=== PATIENT | female | born 1950 | race Hispanic/Latino ===

== ENCOUNTER 2017-05-21 11:40 | Emergency (ER) | payer OTHER ==
[2017-05-21 11:50] VITALS: TEMP 98.1
[2017-05-21] MEDS ORDERED: Tetanus/Diphtheria Toxoids 0.5 ml Syringe IM ONE (12:18)
--- NOTE | 2017-05-21 12:19 | C.PDOC ---
History Of Present Illness 67 year old female presents to the ED for evaluation of pain, swelling and lacerations to her right 3rd and 4th fingers. Patient reports she accidentally slammed her right 3rd and 4th fingers with the garage door at approximately 09: 00 am. She states her tetanus is not up to date otherwise denies any weakness, numbness, decreased sensation, fever, chills. Time Seen by Provider: 05/21/17 11:55 Chief Complaint (Nursing): Upper Extremity Problem/Injury History Per: Patient History/Exam Limitations: no limitations Onset/Duration Of Symptoms: Hrs Current Symptoms Are (Timing): Still Present Quality: "Pain" Recent travel outside of the [place]: No Additional History Per: Patient Past Medical History Reviewed: Historical Data, Nursing Documentation, Vital Signs Vital Signs: Last Vital Signs Temp 98.1 F 05/21/17 11:49 Pulse 82 05/21/17 12:52 Resp 16 05/21/17 12:52 BP 172/100 H 05/21/17 12:52 Pulse Ox 98 05/24/17 11:27 - Medical History PMH: No Chronic Diseases Surgical History: No Surg Hx Family History: States: Unknown Family Hx - Social History Hx Alcohol Use: No Hx Substance Use: No Review Of Systems Constitutional: Negative for: Fever, Chills Musculoskeletal: Positive for: Hand Pain (Right 3rd and 4th fingers) Skin: Positive for: Other (Lacerations, swelling to distal phalanges on right 3rd and 4th fingers, palmar surface) Neurological: Negative for: Weakness, Numbness Physical Exam - Physical Exam Appears: Non-toxic, No Acute Distress Skin: Ecchymosis (right 3rd and 4th finger distal phalanx), Other (1.2 cm laceration across distal phalanges palmar surface of 3rd and 4th right fingers) Head: Atraumatic, Normacephalic Eye(s): bilateral: Normal Inspection, PERRL Nose: No Discharge, No Deformity Neck: Supple Extremity: Capillary Refill (less than 2 seconds), No Deformity, Swelling ( right 3rd and 4th finger distal phalanx), Other (right 3rd finger small subungual hematoma 10% nailbed ) Pulses: Left Radial: Normal, Right Radial: Normal Neurological/Psych: Oriented x3, Normal Speech, Normal Cognition, Normal Motor, Normal Sensation ED Course And Treatment O2 Sat by Pulse Oximetry: 98 (On RA) Pulse Ox Interpretation: Normal - Other Rad hand X-Ray: Viewed By Me, Read By Radiologist Interpretation: Acute transverse nondisplaced fractures in the kimmie of the distal phalanx is of the 3rd and 4th digits with overlying soft tissue swelling. Medical Decision Making Medical Decision Making: Plan: * Toradol 30 mg IM given * adacel 0.5 ML IM given * Right hand X-ray ordere 142 pm pt with tuft fractures of both 3rd and 4th fingers right hand. both fingertips ecchymotic and swollen , each with approx 1-1.3 cm irregular lacerations horizontally; unable to approximate skin on either finger due to swelling. Bacitracin applied, non stiick dressing applied, cold compress applied. after cold compress, splints placed on each finger. pt has no hx of htn, has no cp, sob, dizziness at this time. pt advised to f/u med clinic in 1 day for bp check and also for wound check of fingers. Disposition Counseled Patient/Family Regarding: Diagnosis, Need For Followup, Rx Given - Disposition Referrals: [facility] [Outside] [facility] [Outside] [facility] [Outside] Linda Johansen MD [Staff Provider] - Disposition: HOME/ ROUTINE Disposition Time: 13:49 Condition: STABLE Additional Instructions: Please keep dressing on fingers clean and dry until wound check in 1-2 days. Take antibiotics and ibuprofen as prescribed. Follow up in medical clinic in 1- 2 days for blood pressure check and for wound check of fingers, or with Hand surgeon. . Return to ER for any worsening symptoms, fever, or any other concerning symptoms. Prescriptions: Cephalexin [cephalexin] 500 mg PO QID #28 cap Instructions: Finger Fracture (ED), Laceration Without Closure (ED), Crush Injury (ED) Forms: [facility] (Ukrainian), General Discharge Instructions - Clinical Impression Clinical Impression: Crushing injury of right middle finger, Crushing injury of right ring finger, initial encounter, Open fracture of tuft of distal phalanx of finger with delayed healing, Elevated blood pressure reading without diagnosis of hypertension - PA / CHRONIC DISEASE MANAGER / Resident Statement MD/DO has reviewed & agrees with the documentation as recorded. - Scribe Statement The provider has reviewed the documentation as recorded by the Scribe Marquise Mcgarry All medical record entries made by the Scribe were at my direction and personally dictated by me. I have reviewed the chart and agree that the record accurately reflects my personal performance of the history, physical exam, medical decision making, and the department course for this patient. I have also personally directed, reviewed, and agree with the discharge instructions and disposition.
[2017-05-21] MEDS ORDERED: Bacitracin 500 Units/gm Oint Foilpak UD TOP ONE (12:44)
[2017-05-21 12:52] VITALS: BP 172/100; PULSE 82; RESP 16
--- NOTE | 2017-05-21 13:40 | RAD ---
PROCEDURE: Right Hand Radiographs. HISTORY: crush injury 3rd and 4th fingers distal tip COMPARISON: None. FINDINGS: BONES: There are acute transverse nondisplaced fractures in the tuft of the distal phalanges of the 3rd and 4th digits with overlying soft tissue swelling. Bone alignment and mineralization are normal. JOINTS: Normal. No osteoarthritic changes. SOFT TISSUES: No radiopaque foreign body. OTHER FINDINGS: None. IMPRESSION: Acute transverse nondisplaced fractures in the kimmie of the distal phalanx is of the 3rd and 4th digits with overlying soft tissue swelling.
[2017-05-21 13:47] VITALS: O2SAT 98
== END 2017-05-21 14:04 | disposition home or self-care (01) ==
LOC: C.ER 11:40
DX: S67.192A Crushing injury of right middle finger, initial encounter (principal); S67.194A Crushing injury of right ring finger, initial encounter; S62.632G Displaced fracture of distal phalanx of right middle finger, subsequent encounter for fracture with delayed healing; S62.634G Displaced fracture of distal phalanx of right ring finger, subsequent encounter for fracture with delayed healing; W22.8XXA Striking against or struck by other objects, initial encounter; R03.0 Elevated blood-pressure reading, without diagnosis of hypertension
CPT/HCPCS: 29130; 73130; 90471; 90715; 96372; 99285; J1885

== ENCOUNTER 2017-05-23 09:53 | Emergency (ER) | payer MEDICARE, OTHER ==
[2017-05-23 09:59] VITALS: RESP 18; O2SAT 100
--- NOTE | 2017-05-23 10:29 | C.PDOC ---
History Of Present Illness <Selma Pop - Last Filed: 05/23/17 10:39> <Pritesh Peoples - Last Filed: 05/23/17 11:39> 67 year old female who came to the ED 2 days ago for pain and swelling of her right 3rd and 4th fingers. Patient reported she had accidentally slammed her right 3rd and 4th fingers with the garage door that morning. She was evaluated by ER physician and the would was examined with radiographs which indicated acute transverse non-displaced fractures in the kimmie of the distal phalanx of the 3rd and 4th digits with overlying soft tissue swelling. The wound was dressed with splints, she was given scripts for keflex and ibuprofen and she was asked to follow up with a hand surgeon or the [facility]. She was also given a tetanus vaccine during her initial encounter. She has been compliant with meds. He not seen physician due to no insurance coverage currently. Denies any weakness, numbness, decreased sensation, fever, chills. She is coming in today for evaluation of the wound and dressing change. (Pritesh Peoples) <Selma Pop - Last Filed: 05/23/17 10:39> History Per: Patient Onset/Duration Of Symptoms: Days Ago Current Symptoms Are (Timing): Still Present Location Of Injury: Right: Hand Quality Of Symptoms: Painful, Swollen Severity: Moderate Pain Scale Rating Of: 5 <Pritesh Peoples - Last Filed: 05/23/17 11:39> Time Seen by Provider: 05/23/17 10:04 Chief Complaint (Nursing): Wound Check Past Medical History - Medical History PMH: No Chronic Diseases Surgical History: No Surg Hx Family History: States: Unknown Family Hx - Social History Hx Alcohol Use: No Hx Substance Use: No <Pritesh Peoples - Last Filed: 05/23/17 11:39> Vital Signs: Last Vital Signs Temp 98.0 F 05/23/17 11:20 Pulse 70 05/23/17 11:20 Resp 18 05/23/17 11:20 BP 160/92 H 05/23/17 11:20 Pulse Ox 100 05/23/17 11:32 Review Of Systems Constitutional: Negative for: Fever, Chills Eyes: Negative for: Vision Change Cardiovascular: Negative for: Chest Pain, Palpitations Respiratory: Negative for: Cough, Shortness of Breath Gastrointestinal: Negative for: Nausea, Vomiting, Abdominal Pain Musculoskeletal: Positive for: Hand Pain (right hand pain) Neurological: Negative for: Weakness, Numbness <Pritesh Peoples - Last Filed: 05/23/17 11:39> Physical Exam - Physical Exam Appears: No Acute Distress Head: Atraumatic, Normacephalic Cardiovascular: Rhythm Regular Respiratory: Normal Breath Sounds, No Rales, No Rhonchi Gastrointestinal/Abdominal: Soft, No Tenderness Neurological/Psych: Oriented x3, Normal Speech, Normal Cognition, Normal Sensation 1 - right hand 3rd and 4th digit- lacerations on the ventral aspect of both digits with serosanguinous discharge, no purulence, appropriately swollen given context of injury, wound exhibits appropriate healing <Pritesh Peoples - Last Filed: 05/23/17 11:39> ED Course And Treatment O2 Sat by Pulse Oximetry: 100 <Pritesh Peoples - Last Filed: 05/23/17 11:39> Supervising Attending Note - Attestation: I have personally seen and examined this patient.: Yes I have fully participated in the care of the patient.: Yes I have reviewed all pertinent clinical information, including history, physical exam and plan: Yes <Selma Pop - Last Filed: 05/23/17 10:39> <Pritesh Peoples - Last Filed: 05/23/17 11:39> - Notes: Notes:: REQUESTING DRESSING CHANGE. SEEN 05/21 SP 3,4 CRUSH INJURY CURRENTLY ON ABX. COMPLAINT W MEDS. PS HAS NO INSURANCE. EXAM ABOVE. WOUND CLEANED, REDRESSED, RESPLINTED. HAND SURG REFERRAL GIVEN (Selma Pop) Medical Decision Making <Selma Pop - Last Filed: 05/23/17 10:39> <Pritesh Peoples - Last Filed: 05/23/17 11:39> Medical Decision Making: Wound was evaluated and healing appropriately. No signs of infection- no purulence. The wound was rinsed with saline and redressed with bacitracin topical ointment applied. Metal finger splints were use to stabilize the 3rd and 4th digits. She has already been given Keflex and is to continue taking this. Ibuprofen prn pain. She will need to follow up with hand surgeon and PCP. She will need BID dressing changes at home. The steps for dressing changes and cleaning the wound were discussed with the patient. (Pritesh Peoples) Disposition Counseled Patient/Family Regarding: Diagnosis, Need For Followup - Disposition Disposition Time: 10:51 <Selma Pop - Last Filed: 05/23/17 10:39> <Pritesh Peoples - Last Filed: 05/23/17 11:39> - Disposition Referrals: Linda Johansen MD [Staff Provider] - [facility] [Outside] [facility] [Outside] Disposition: HOME/ ROUTINE Condition: IMPROVED Additional Instructions: WOUND CARE AND DRESSING CHANGE TWICE DAILY INSTRUCTED FOLLOW UP WITH HAND SURGERY COMPLETE ANTIBIOTICS PRESCRIBED Instructions: Acute Wound Care (ED) Forms: [facility] (Hebrew) - Clinical Impression Clinical Impression: Change of dressing, Encounter for evaluation of wound Orthopedic Care Application Of:: Finger Splint <Selma Pop - Last Filed: 05/23/17 10:39>
[2017-05-23 11:33] VITALS: BP 160/92; PULSE 70; TEMP 98
== END 2017-05-23 11:26 | disposition home or self-care (01) ==
LOC: C.ER 09:53
DX: Z48.00 Encounter for change or removal of nonsurgical wound dressing (principal)